=== PATIENT | female | born 1970 | race Caucasian/White ===

== ENCOUNTER 2017-03-26 07:51 | Day surgery (SDC) | payer OTHER ==
[2017-03-26 08:41] VITALS: O2SAT 100
[2017-03-26] MEDS ORDERED: Lactated Ringer's 1,000 ML IV ONE (09:15)
[2017-03-26] MEDS ORDERED: Propofol 10 mg/ml Inj (20 ML) ONE (09:46)
[2017-03-26 10:07] VITALS: TEMP 98.2
[2017-03-26 10:52] VITALS: BP 131/71; PULSE 71; RESP 17
== END 2017-03-26 10:50 | disposition home or self-care (01) ==
LOC: C.ENDO 07:51
PROVIDERS: ATTEND Internal Medicine Gastroenterology
DX: R13.11 Dysphagia, oral phase (principal); K59.09 Other constipation; K21.0 Gastro-esophageal reflux disease with esophagitis; K29.70 Gastritis, unspecified, without bleeding; B96.81 Helicobacter pylori [H. pylori] as the cause of diseases classified elsewhere
CPT/HCPCS: 43239; 84703; 88305; 88312; 88313; 88342; J2001; J2704; J7120